=== PATIENT | female | born 1970 | race Caucasian/White ===

== ENCOUNTER 2021-08-15 15:37 | Emergency (ER) | payer OTHER ==
[2021-08-15] MEDS ORDERED: PERCOCET 5-3251 EACH PO (21:06)
== END 2021-08-15 21:32 | disposition home or self-care (01) ==
LOC: FER 15:37
DX: M25.551 Pain in right hip (principal); M54.50 Low back pain, unspecified; E11.9 Type 2 diabetes mellitus without complications; I10 Essential (primary) hypertension; E03.9 Hypothyroidism, unspecified; Z88.5 Allergy status to narcotic agent; Z88.6 Allergy status to analgesic agent; Z79.84 Long term (current) use of oral hypoglycemic drugs; Z79.890 Hormone replacement therapy; Z79.899 Other long term (current) drug therapy; W01.0XXA Fall on same level from slipping, tripping and stumbling without subsequent striking against object, initial encounter; Y92.009 Unspecified place in unspecified non-institutional (private) residence as the place of occurrence of the external cause
CPT/HCPCS: 72131; 73502; J1885